=== PATIENT | female | born 1960 | race Caucasian/White ===

== ENCOUNTER 2018-05-10 12:24 | Emergency (ER) | payer OTHER ==
[~2018-05-10] VITALS: Ht 157.5 cm; Wt 49.3 kg
[2018-05-10] MEDS ORDERED: LISI-167 PO (12:57)
--- NOTE | 2018-05-10 13:00 | NUR ---
THIS IS A 57 YEAR OLD FEMALE WHO C/O OF ABD PAIN WITH RED STOOL. PT STATES STARTED 2 DAYS AGO.
[2018-05-10 13:28] LABS: BASOPHILS # (AUTO) 0.03 x10^3/uL (0-0.1); BASOPHILS % (AUTO) 0 % (0-1); EOSINOPHILS # (AUTO) 0.03 x10^3/uL (0-0.4); EOSINOPHILS % (AUTO) 0 % (1-7); LYMPHOCYTES # (AUTO) 1.26 x10^3/uL (1-3.4); LYMPHOCYTES % (AUTO) 14 % (22-44); MD NO; MEAN CORPUSCULAR HEMOGLOBIN 30.3 pg (27.0-34.8); MEAN CORPUSCULAR HGB CONC 34.2 g/dL (32.4-35.8); MEAN CORPUSCULAR VOLUME 88.6 fL (80-100); MEAN PLATELET VOLUME 7.9 fL (7.4-10.4); MONOCYTES % (AUTO) 9 % (2-9); NEUTROPHILS # (AUTO) 7.19 x10^3/uL (1.8-6.8); NEUTROPHILS % (AUTO) 77 % (42-75); PLATELET COUNT 262 x10^3/uL (130-400); RED BLOOD COUNT 4.77 x10^6/uL (3.82-5.3); RED CELL DISTRIBUTION WIDTH 14.8 % (9.6-15.2)
--- NOTE | 2018-05-10 13:35 | NUR ---
CT WAITING ON LABS
[2018-05-10 13:39] LABS: ALANINE AMINOTRANSFERASE 24 U/L (12-78); ANION GAP 9 mmol/L (5-15); CALCIUM 9.2 mg/dL (8.5-10.1); CHLORIDE 103 mmol/L (98-107); CREATININE 0.66 mg/dL (0.55-1.02)
[2018-05-10 13:41] LABS: ALKALINE PHOSPHATASE 80 U/L (45-117); BILIRUBIN,TOTAL 0.5 mg/dL (0.2-1.0); TOTAL PROTEIN 7.6 g/dL (6.4-8.2)
[2018-05-10] MEDS ORDERED: SODIUM CHLORIDE FLUSH 10ML SYR IVF ONE (14:00)
[2018-05-10] MEDS ORDERED: OMNIPAQUE 350 MG/ML, 100ML BOTTLE ONE (14:30)
--- NOTE | 2018-05-10 16:08 | NUR ---
Patient/Caregiver given discharge instructions and they have confirmed that they understand the instructions. Patient ambulatory with steady gait.
[2018-05-10 16:09] VITALS: BP 151/88
== END 2018-05-10 16:11 | disposition home or self-care (01) ==
LOC: ED 13:23
DX: K92.1 Melena (principal); K64.4 Residual hemorrhoidal skin tags; I10 Essential (primary) hypertension
CPT/HCPCS: 36415; 74177; 80053; 83690; 85025; 99284; Q9967